=== PATIENT | male | born 1960 | race Two or more races ===

== ENCOUNTER 2017-01-29 07:58 | Inpatient (IN) | payer OTHER ==
[~2017-01-29] VITALS: Ht 172.7 cm; Wt 71.4 kg
[2017-01-29 08:32] LABS: BASOPHIL % 0.2 % (0-2); RED CELL DISTRIBUTION WIDTH 13.9 % (11.5-14.5)
[2017-01-29 08:36] LABS: CALCIUM 8.4 mg/dL (8.5-10.1); CARBON DIOXIDE 30.2 mmol/L (21-32); CHLORIDE SERUM 96 mmol/L (98-107); CREATININE SERUM 0.8 mg/dL (0.7-1.3); GFR1 > 60 mL/min; GLUCOSE SERUM 337 mg/dL (74-106); PLATELET COUNT 78 x10^3mcL (130-400); POTASSIUM SERUM 3.6 mmol/L (3.5-5.1); SODIUM SERUM 133 mmol/L (136-145)
[2017-01-29 08:41] LABS: ALBUMIN 3.5 g/dL (3.4-5.0); ALKALINE PHOSPHATASE 186 U/L (46-116); ALT/SGPT 85 U/L (16-63); AST/SGOT 54 U/L (15-37); BILIRUBIN TOTAL 0.8 mg/dL (0.20-1.00); TOTAL PROTEIN, SERUM 6.8 g/dL (6.4-8.2)
[2017-01-29 09:53] LABS: microscopic required? YES; urine erythrocyte NEGATIVE (NEGATIVE)
[2017-01-29 10:02] LABS: T3 TOTAL 0.84 ng/mL
[2017-01-29 10:07] LABS: PHOSPHOROUS 2.9 mg/dL (2.5-4.9)
[2017-01-29 10:10] LABS: MAGNESIUM 2.1 mg/dL (1.8-2.4)
[2017-01-29 10:11] LABS: CHOLESTEROL/HDL RATIO 7.4
[2017-01-29 10:18] VITALS: BP 128/71
[2017-01-29 10:31] VITALS: BP 128/71
[2017-01-29 10:32] LABS: FREE T4 1.06 ng/dL (0.76-1.46); FREE THYROXINE INDEX 2.4 ug/dL (1.4-4.5); T4(THYROXINE) 8.6 ug/dL (4.7-13.3)
[2017-01-29 14:38] VITALS: BP 146/81
[2017-01-29 16:06] VITALS: Ht 172.7 cm; Wt 71.4 kg
[2017-01-29 16:32] VITALS: BP 124/77
[2017-01-29 18:05] LABS: AMPHETAMINE QUAL UR NONE DETECTED (NEG <=1000)
[2017-01-29 20:45] VITALS: BP 130/78
[2017-01-30 05:17] VITALS: BP 153/78
[2017-01-30 06:37] LABS: RED CELL DISTRIBUTION WIDTH 13.8 % (11.5-14.5)
[2017-01-30 06:49] LABS: CALCIUM 8.1 mg/dL (8.5-10.1); CARBON DIOXIDE 26.5 mmol/L (21-32); CHLORIDE SERUM 98 mmol/L (98-107); CREATININE SERUM 0.6 mg/dL (0.7-1.3); GFR1 > 60 mL/min; GLUCOSE SERUM 178 mg/dL (74-106); MAGNESIUM 2.2 mg/dL (1.8-2.4); PHOSPHOROUS 3.7 mg/dL (2.5-4.9); POTASSIUM SERUM 3.8 mmol/L (3.5-5.1); SODIUM SERUM 135 mmol/L (136-145)
[2017-01-30 07:04] LABS: BASOPHIL % 0 % (0-2); PLATELET COUNT 65 x10^3mcL (130-400)
[2017-01-30 09:33] VITALS: BP 149/87
[2017-01-30 14:11] VITALS: BP 118/59
[2017-01-30 17:31] VITALS: BP 132/60
[2017-01-30 20:55] VITALS: BP 112/68
[2017-01-31 05:45] VITALS: BP 134/71
[2017-01-31 06:13] LABS: CALCIUM 7.8 mg/dL (8.5-10.1); CARBON DIOXIDE 29.2 mmol/L (21-32); CHLORIDE SERUM 101 mmol/L (98-107); CREATININE SERUM 0.6 mg/dL (0.7-1.3); GFR1 > 60 mL/min; GLUCOSE SERUM 168 mg/dL (74-106); PHOSPHOROUS 3.2 mg/dL (2.5-4.9); POTASSIUM SERUM 3.7 mmol/L (3.5-5.1); SODIUM SERUM 136 mmol/L (136-145)
[2017-01-31 07:38] LABS: BASOPHIL % 0.1 % (0-2); PLATELET COUNT 78 x10^3mcL (130-400); RED CELL DISTRIBUTION WIDTH 14.1 % (11.5-14.5)
[2017-01-31 09:26] VITALS: BP 128/70
[2017-01-31] MEDS ORDERED: ZES10 PO (10:53)
[2017-01-31] MEDS ORDERED: TOP50 PO (10:53)
[2017-01-31] MEDS ORDERED: LIPI10 PO (10:53)
[2017-01-31] MEDS ORDERED: ECO81 PO (10:54)
[2017-01-31] MEDS ORDERED: METFORMIN HCL1000 MG PO (10:56)
[2017-01-31] MEDS ORDERED: MOT600 PO (11:09)
[2017-01-31 13:11] VITALS: BP 128/70
== END 2017-01-31 14:44 | disposition home or self-care (01) | DRG 205 ==
LOC: ED 07:58 → DU 08:55 → MU 01-30 15:47
PROVIDERS: Emergency Medicine; Family Medicine; ADMIT Family Medicine
DX: M94.0 Chondrocostal junction syndrome [Tietze] (principal); K85.90 Acute pancreatitis without necrosis or infection, unspecified; N17.0 Acute kidney failure with tubular necrosis; I42.9 Cardiomyopathy, unspecified; E87.1 Hypo-osmolality and hyponatremia; E11.51 Type 2 diabetes mellitus with diabetic peripheral angiopathy without gangrene; E11.65 Type 2 diabetes mellitus with hyperglycemia; K76.0 Fatty (change of) liver, not elsewhere classified; F17.210 Nicotine dependence, cigarettes, uncomplicated; E78.5 Hyperlipidemia, unspecified; I10 Essential (primary) hypertension; K21.9 Gastro-esophageal reflux disease without esophagitis; Z53.29 Procedure and treatment not carried out because of patient's decision for other reasons
CPT/HCPCS: 80307; 83880; 84439; J2270; J2405; J3010; J7030; Q0092

== ENCOUNTER 2018-04-13 07:36 | Emergency (ER) | payer OTHER ==
[~2018-04-13] VITALS: Ht 177.8 cm; Wt 68.0 kg
[~2018-04-13 07:36] MED LIST: ECO81 PO; LIPI10 PO; METFORMIN HCL1000 MG PO; MOT600 PO; TOP50 PO; ZES10 PO
[2018-04-13 07:54] VITALS: Ht 177.8 cm; Wt 68.0 kg
[2018-04-13 08:21] LABS: microscopic required? NO
[2018-04-13 08:26] LABS: BASOPHIL % 0.4 % (0-2); PLATELET COUNT 171 x10^3mcL (130-400)
[2018-04-13 08:38] LABS: UA SPECIFIC GRAVITY 1.025 (1.005-1.035); urine erythrocyte NEGATIVE (NEGATIVE)
[2018-04-13 09:01] LABS: CALCIUM 8.7 mg/dL (8.5-10.1); CARBON DIOXIDE 27.4 mmol/L (21-32); CHLORIDE SERUM 100 mmol/L (98-107); CREATININE SERUM 0.8 mg/dL (0.7-1.3); GFR1 > 60 mL/min; GLUCOSE SERUM 370 mg/dL (74-106); POTASSIUM SERUM 4.2 mmol/L (3.5-5.1); SODIUM SERUM 135 mmol/L (136-145)
[2018-04-13 09:05] LABS: ALBUMIN 3.8 g/dL (3.4-5.0); ALKALINE PHOSPHATASE 148 U/L (46-116); ALT/SGPT 30 U/L (16-63); AMYLASE 38 U/L (25-115); AST/SGOT 18 U/L (15-37); BILIRUBIN TOTAL 0.37 mg/dL (0.20-1.00); CHOLESTEROL 338 mg/dL (<200); HDL CHOLESTEROL 35 mg/dL (40-60); LIPASE 192 IU/L (73-393); TOTAL PROTEIN, SERUM 7.3 g/dL (6.4-8.2)
[2018-04-13 10:56] VITALS: BP 121/72
== END 2018-04-13 10:56 | disposition home or self-care (01) ==
LOC: ED 07:36
PROVIDERS: Emergency Medicine
DX: E11.69 Type 2 diabetes mellitus with other specified complication (principal); E78.00 Pure hypercholesterolemia, unspecified; F17.210 Nicotine dependence, cigarettes, uncomplicated; K42.9 Umbilical hernia without obstruction or gangrene
CPT/HCPCS: 36600; 83880; 99406; J1815; Q0092

== ENCOUNTER 2019-06-09 12:05 | Emergency (ER) | payer MEDICAID ==
[~2019-06-09] VITALS: Ht 172.7 cm; Wt 65.3 kg
[2019-06-09 13:51] VITALS: BP 119/74
== END 2019-06-09 13:51 | disposition home or self-care (01) ==
LOC: ED 12:05
DX: S05.02XA Injury of conjunctiva and corneal abrasion without foreign body, left eye, initial encounter (principal); E11.9 Type 2 diabetes mellitus without complications; W22.8XXA Striking against or struck by other objects, initial encounter; Y93.9 Activity, unspecified; Y92.89 Other specified places as the place of occurrence of the external cause; Y99.8 Other external cause status
CPT/HCPCS: 90715; J7030; V2632